=== PATIENT | female | born 2000 | race Caucasian/White ===

== ENCOUNTER 2023-07-06 16:06 | Inpatient (IN) | payer OTHER ==
[~2023-07-06 16:06] MED LIST: Lactated Ringers 1,000 ML IV SCH
[2023-07-06 19:14] LABS: ADD URINE CULTURE? YES (NO); Appearance Clear (Clear); Bacteria Few /HPF (None Seen); Bilirubin Negative (Negative); Blood Moderate (Negative); Epithelial Cells Rare /HPF (None Seen); Glucose, Urine Negative (Negative); Hyaline Casts NONE SEEN /LPF (0-2); Ketones Negative (Negative); Leukocyte Esterase Small (Negative); Nitrite Negative (Negative); Protein,Urine Dip Negative (Negative); RBC 0-2 /HPF (0-5)
[2023-07-06 19:20] LABS: Amphetamine,Urine NEGATIVE (NEGATIVE); Barbiturate,Urine NEGATIVE (NEGATIVE); Benzodiazepine,Urine NEGATIVE (NEGATIVE); Cocaine,Urine NEGATIVE (NEGATIVE); Methadone,Urine NEGATIVE (NEGATIVE); Opiate,Urine NEGATIVE (NEGATIVE); PCP,Urine NEGATIVE (NEGATIVE); THC,Urine NEGATIVE (NEGATIVE)
[2023-07-06] MEDS ORDERED: XYLOCAINE 1% HCL 20 ML MDV IJ PRN (20:09)
[2023-07-06] MEDS ORDERED: Zofran 4 MG/2 ML VIAL IV PRN (20:09)
[2023-07-06] MEDS ORDERED: Ephedrine Sulfate 50 MG/ML IV PRN (20:16)
[2023-07-06 20:51] LABS: Absolute Neutrophil Ct (ANC) 13.83 x10^3/uL (1.4-6.9); BASOPHIL % 0.4 % (0.0-0.4); Basophil (Absolute #) 0.08 x10^3/uL (0-0.4); Eosinophil % 0.1 % (0.00-5.0); Eosinophil (Absolute #) 0.02 x10^3/uL (0-0.5); Hematocrit 32.7 % (35-47); Hemoglobin 10.5 g/dL (12.0-16.0); IMMATURE GRAN % 1.7 % (0.00-0.4); Lymphocyte (Absolute #) 2.92 x10^3/uL (1.0-4.6); Lymphocytes % 16.2 % (24.0-44.0); Mean Cell Volume 80.5 fL (78-100); Mean Corpuscular Hemoglobin 25.9 pg (26-32); Mean Corpuscular Hgb Concent. 32.1 g/dL (32-36); Mean Platelet Volume 11.6 fL (7.5-11.0); Monocyte (Absolute #) 0.84 x10^3/uL (0.0-1.3); Monocytes % 4.7 % (0.0-12.0); Neutrophil % 76.9 % (36.0-66.0); Platelet Count 295 x10^3/uL (150-450); Red Blood Count 4.06 x10^6/uL (4.1-5.4)
[2023-07-06] MEDS ORDERED: FENTANYL 2 MCG-BUPIV 0.125%-NS 250 ML Epidur 250 ML EPIDURAL SCH (21:00)
[2023-07-06] MEDS ORDERED: Lactated Ringers 1,000 ML IV ONE (21:00)
[2023-07-06 22:44] LABS: ABO TYPING A; RH TYPING POSITIVE
[2023-07-06 22:45] LABS: Antibody Screen POSITIVE (NEGATIVE)
[2023-07-07] MEDS ORDERED: PITOCIN 30 UNITS/ LR 500 ML 30 UNITS/500 ML PLAST..BAG IV SCH (06:00)
[2023-07-07] MEDS ORDERED: Ambien 10 MG PO PRN (09:13)
[2023-07-07] MEDS ORDERED: Dulcolax 10 MG SUPP PR PRN (09:13)
[2023-07-07] MEDS ORDERED: Mylicon 80MG PO PRN (09:13)
[2023-07-07] MEDS ORDERED: Anucort-HC SUPPOSITORY PR PRN (09:13)
[2023-07-07] MEDS ORDERED: CORTISONE 1% CREAM TP PRN (09:13)
[2023-07-07] MEDS ORDERED: Restoril 15 MG PO PRN (09:13)
[2023-07-07] MEDS ORDERED: TYLENOL EXTRA STRENGTH 500 MG PO PRN (09:13)
[2023-07-07] MEDS ORDERED: TUCKS TP PRN (09:13)
[2023-07-07] MEDS ORDERED: Dermoplast Spray TP PRN (09:13)
[2023-07-07] MEDS: FERREX 150 PO SCH (12:54)
[2023-07-07] MEDS: Docusate Sodium 100 MG PO SCH ×2 (12:54→21:43)
[2023-07-07] MEDS: MOTRIN 400 MG PO PRN ×2 (14:44→21:42)
[2023-07-07 16:18] VITALS: O2SAT 98
[2023-07-07 19:40] LABS: Appearance Clear (Clear); Bilirubin Negative (Negative); Blood Large (Negative); Glucose, Urine Negative (Negative); Hyaline Casts NONE SEEN /LPF (0-2); Ketones 15 (Negative); Leukocyte Esterase Trace (Negative); Nitrite Negative (Negative); Ph 6.5 (4.6-8.0); Protein,Urine Dip Negative (Negative); Specific Gravity 1.015 (1.005-1.030)
[2023-07-07 19:41] LABS: Bacteria Rare /HPF (None Seen); Epithelial Cells Few /HPF (None Seen)
[2023-07-07 19:42] LABS: ADD URINE CULTURE? NO (NO)
[2023-07-07] MEDS: TYLENOL EXTRA STRENGTH 500 MG PO PRN (19:49)
[2023-07-08] MEDS: TYLENOL EXTRA STRENGTH 500 MG PO PRN ×2 (02:38→16:46)
[2023-07-08] MEDS: MOTRIN 400 MG PO PRN ×3 (04:35→19:14)
[2023-07-08 04:59] LABS: Absolute Neutrophil Ct (ANC) 10.54 x10^3/uL (1.4-6.9); BASOPHIL % 0.3 % (0.0-0.4); Basophil (Absolute #) 0.04 x10^3/uL (0-0.4); Eosinophil % 0.4 % (0.00-5.0); Eosinophil (Absolute #) 0.05 x10^3/uL (0-0.5); Hematocrit 30.8 % (35-47); Hemoglobin 9.8 g/dL (12.0-16.0); IMMATURE GRAN # 0.23 x10^3u/L (0.00-0.03); IMMATURE GRAN % 1.6 % (0.00-0.4); Lymphocyte (Absolute #) 2.42 x10^3/uL (1.0-4.6); Mean Cell Volume 81.5 fL (78-100); Mean Corpuscular Hemoglobin 25.9 pg (26-32); Mean Corpuscular Hgb Concent. 31.8 g/dL (32-36); Mean Platelet Volume 11.9 fL (7.5-11.0); Monocyte (Absolute #) 0.97 x10^3/uL (0.0-1.3); Monocytes % 6.8 % (0.0-12.0); Neutrophil % 73.9 % (36.0-66.0); Platelet Count 245 x10^3/uL (150-450); Red Blood Count 3.78 x10^6/uL (4.1-5.4); Red Cell Distribution Width 13.2 % (11.5-14.0); White Blood Count 14.3 x10^3/uL (4.0-10.5)
[2023-07-08] MEDS: FERREX 150 PO SCH (09:50)
[2023-07-08] MEDS: Docusate Sodium 100 MG PO SCH ×2 (09:50→21:51)
--- NOTE | 2023-07-09 08:52 | PCM.DS ---
Discharge Summary Date of Admission: 07/06/23 20:00 Admitting Physician: ARLINE PRESSLEY Consults: Consults on Case 07/06/23 17:05 OB Social Determinants of Health Referal ONCE 07/06/23 21:00 Notify Anesthesia Provider PRN 07/07/23 09:14 Notify Physician ROUTINE 07/07/23 16:00 Navigation ONCE Primary Care Provider: ARLINE PRESSLEY Allergies Allergies amoxicillin Allergy (Severe, Verified 07/06/23 17:05) Hospital Summary - Hospital Course Hospital Course: patient arrived in spontaneous labor at 37+weeks and delivered via uncomplicated . mild lochia, pain well controlled with motrin - Vitals & Intake/Output Vital Signs: Vital Signs Temperature 96.7 F 07/09/23 02:00 Pulse Rate 73 07/09/23 02:00 Respiratory Rate 15 07/09/23 02:00 Blood Pressure 113/69 07/09/23 02:00 O2 Sat by Pulse Oximetry 98 07/09/23 02:00 Intake & Output: Intake & Output 07/06/23 07/07/23 07/08/23 07/09/23 11:59 11:59 11:59 11:59 Intake Total 9150 2225 1100 Output Total 700 Balance 8450 2225 1100 Weight 64.864 kg - Lab Result Diagrams: 07/08/23 04:50 Micro Results-Entire Visit: Microbiology 07/07/23 17:00 Urine Culture - Final Catherized NO GROWTH 07/06/23 17:00 Urine Culture - Final Clean Catch Midstream NO GROWTH Discharge Exam General Appearance: no apparent distress Neurologic Exam: alert, oriented x 3 Respiratory Exam: normal breath sounds, lungs clear, No respiratory distress Cardiovascular Exam: regular rate/rhythm, normal heart sounds Gastrointestinal/Abdomen Exam: soft, No tenderness, No mass Extremity Exam: normal inspection, normal range of motion Skin Exam: normal color, warm, dry Final Diagnosis/Problem List - Final Discharge Diagnosis/Problem (1) Vaginal delivery Current Visit: Yes Status: Acute Code(s): O80 - ENCOUNTER FOR FULL-TERM UNCOMPLICATED DELIVERY (2) First degree perineal laceration Current Visit: Yes Status: Acute Code(s): O70.0 - FIRST DEGREE PERINEAL LACERATION DURING DELIVERY - Discharge Disposition: Home, Self-Care Condition: Stable Prescriptions: Continue Vit No.179/Iron/Folic [ Tablet] See Rx Instructions .ROUTE .COMPLEX Ferrous Sulfate 1 tab PO DAILY Albuterol Sulfate [Albuterol Sulfate Hfa] 2 puffs PO Q4-6HPRN PRN PRN Reason: Shortness Of Breath Follow up with: ARLINE PRESSLEY MD [Primary Care Provider] -
[2023-07-09] MEDS: FERREX 150 PO SCH (09:42)
[2023-07-09] MEDS: Docusate Sodium 100 MG PO SCH (09:42)
[2023-07-09] MEDS: MOTRIN 400 MG PO PRN (09:42)
[2023-07-09 10:15] VITALS: BP 126/69; PULSE 101; RESP 16; TEMP 97.8
== END 2023-07-09 11:20 | disposition home or self-care (01) | DRG 807 ==
LOC: OB 16:06 → OBSVTOIN 20:00 → MED SURG 07-08 08:59
PROVIDERS: ADMIT Family Medicine; ATTEND Family Medicine
PROC: 10E0XZZ Delivery of Products of Conception, External Approach (ICD-10-PCS; principal; 2023-07-07)
PROC: 0HQ9XZZ Repair Perineum Skin, External Approach (ICD-10-PCS; 2023-07-07)
DX: O70.0 First degree perineal laceration during delivery (principal); Z37.0 Single live birth; Z3A.37 37 weeks gestation of pregnancy; Z20.828 Contact with and (suspected) exposure to other viral communicable diseases
CPT/HCPCS: 36415; 80307; 81001; 81003; 85025; 86850; 86870; 86900; 86901; 87086; G0378; G0379; J2590; A9270-GY

== ENCOUNTER 2023-11-15 20:24 | Emergency (ER) | payer OTHER ==
--- NOTE | 2023-11-15 20:35 | ERPHSYRPT ---
- History of Present Illness Time Seen by Provider: 11/15/23 20:35 Source: patient Exam Limitations: no limitations Physician History: This is a right-handed 23-year-old white female patient Dr. Pressley who was washing dishes prior to arrival to the emergency department when a glass broke and cut the lateral aspect of her right fifth digit. Patient tetanus status is unknown and she is refusing tetanus injection Timing/Duration: today Quality: burning, painful Severity: mild Location: feet (Right hand fifth digit) Possible Causes: no cause identified Associated Symptoms: denies symptoms Allergies/Adverse Reactions: amoxicillin Allergy (Severe, Verified 11/15/23 20:42) Home Medications: Albuterol Sulfate [Albuterol Sulfate Hfa] 2 puffs PO Q4-6HPRN PRN 07/06/23 [History] Dextroamphetamine/Amphetamine [Adderall 15 mg Tablet] 15 mg PO DAILY 11/15/23 [History] Travel Risk - International Travel Have you traveled outside of the country in past 3 weeks: No - Coronavirus Screening Are you exhibiting any of the following symptoms?: No Close contact with a COVID-19 positive Pt in past 14-21 Days: No - Vaccine Status Have you recieved a Covid-19 vaccination: No - Review of Systems Constitutional: No Symptoms Eyes: No Symptoms Ears, Nose, & Throat: No Symptoms Respiratory: No Symptoms Cardiac: No Symptoms Abdominal/Gastrointestinal: No Symptoms Genitourinary Symptoms: No Symptoms Musculoskeletal: No Symptoms Skin: Other Neurological: No Symptoms Psychological: No Symptoms Endocrine: No Symptoms Hematologic/Lymphatic: No Symptoms - Past Medical History Pertinent Past Medical History: No Neurological History: No Pertinent History ENT History: No Pertinent History Cardiac History: No Pertinent History Respiratory History: Asthma Endocrine Medical History: No Pertinent History Musculoskeletal History: Other GI Medical History: No Pertinent History, Diverticulosis Psycho-Social History: No Pertinent History Female Reproductive Disorders: No Pertinent History Other Medical History: Scoliosis - Past Surgical History Past Surgical History: Yes (Wrist surgery) Neuro Surgical History: No Pertinent History Cardiac: No Pertinent History Respiratory: Chest Surgery Gastrointestinal: No Pertinent History Genitourinary: No Pertinent History Musculoskeletal: Other Female Surgical History: No Pertinent History - Social History Smoking Status: Never smoker Exposure to second hand smoke: No Drug Use: none - Nursing Vital Signs Nursing Vital Signs: Initial Vital Signs Temperature 98.4 F 01/01/24 20:33 Pulse Rate 80 11/15/23 20:33 Respiratory Rate 16 11/15/23 20:33 Blood Pressure 129/73 11/15/23 20:33 O2 Sat by Pulse Oximetry 98 11/15/23 20:33 Pain Scale Pain Intensity 1 - Physical Exam General Appearance: no apparent distress, alert, anxiety, thin Eye Exam: PERRL/EOMI Ears, Nose, Throat Exam: normal ENT inspection, moist mucous membranes Neck Exam: normal inspection, non-tender, supple, full range of motion Respiratory Exam: airway intact, No chest tenderness, No respiratory distress Pelvic Exam: not done Rectal Exam: not done Back Exam: normal inspection, normal range of motion, No CVA tenderness, No vertebral tenderness Extremity Exam: normal inspection, normal range of motion, pelvis stable, lacerations (Approximately half centimeter by half centimeter by half centimeter flap lateral aspect right fifth digit), other (Neurovascularly intact tendons intact) Neurologic Exam: alert, oriented x 3, cooperative, beer coil cleaner II-XII nml as tested, normal mood/affect, nml cerebellar function, nml station & gait, sensation nml Skin Exam: normal color, warm, laceration (Half centimeter by half centimeter by half centimeter rectangular flap laceration lateral aspect right fifth digit. No foreign body. No active bleeding.) Lymphatic Exam: No adenopathy SpO2 Interpretation: normal O2 Delivery: Room Air Procedures - Laceration/Wound Repair Right Lateral Finger Time of Procedure: 20:55 Wound Location: Right, hand (Fifth digit lateral aspect) Wound Length (cm): 0.5 (0.5 cm x 0.5 cm x 0.5 cm skin flap) Wound's Depth, Shape: superficial, flap Wound Explored: clean (Wound explored to the base is clean. There is no foreign body noted) Irrigated: Yes Hibiclens Prep: Yes Wound Repaired With: Steri-strips, Dermabond (Benzoin applied) - Course Nursing assessment & vital signs reviewed: Yes - Progress Progress: improved Progress Note: 11/15/23 21:06 This patient's medical issue is 1 of low complexity. Level complex in the workup performed is based on review of the patient's past medical history, review the patient's medication list, review the patient's drug allergy list, history of present illness and physical findings on examination. This patient's workup does not include radiographic or laboratory studies. Counseled pt/family regarding: diagnosis, need for follow-up Medical Desision Making - Independent Historian Additional History obtained from: Spouse - Diagnostic Testing Diagnostic test were ordered, analyzed, and reviewed by me: No - Risk of complications Minimal Risk: Minimal risk of morbidity - Departure Departure Disposition: Home Clinical Impression: Laceration of finger Condition: Stable Critical Care Time: No Referrals: ARLINE PRESSLEY MD [Primary Care Provider] - Follow up/PCP as directed Additional Instructions: Keep pressure dressing in place for 24 hours. After 24 hours, remove the pressure dressing and leave the Steri-Strips in place. After 24 hours have passed, may wash the site with soap and water. Blot dry or use department of mathematics chair to dry the site. Leave the Steri-Strips in place till they fall off on their own. Trim the Steri-Strips as they curl up. Use Tylenol and ibuprofen for pain control
[2023-11-15 20:42] VITALS: RESP 16; TEMP 98.4
[2023-11-15 21:21] VITALS: BP 122/76; PULSE 75; O2SAT 99
== END 2023-11-15 21:19 | disposition home or self-care (01) ==
LOC: ED 20:24
DX: S61.216A Laceration without foreign body of right little finger without damage to nail, initial encounter (principal); W25.XXXA Contact with sharp glass, initial encounter; Y93.G1 Activity, food preparation and clean up; Z79.899 Other long term (current) drug therapy; Z28.310 Unvaccinated for COVID-19
CPT/HCPCS: 12001; 99281

== ENCOUNTER 2024-09-09 15:20 | Observation (INO) | payer OTHER ==
[2024-09-09] MEDS ORDERED: Lactated Ringers 1,000 ML IV ONE (16:53)
[2024-09-09] MEDS ORDERED: STADOL 2 MG IV PRN (16:53)
[2024-09-09] MEDS ORDERED: Ephedrine Sulfate 50 MG/ML IV PRN (16:53)
[2024-09-09] MEDS ORDERED: Nubain 10 MG/ML IV PRN (16:53)
[2024-09-09] MEDS ORDERED: TYLENOL EXTRA STRENGTH 500 MG PO PRN (16:53)
[2024-09-09] MEDS ORDERED: Zofran 4 MG/2 ML VIAL IV PRN (16:53)
[2024-09-09] MEDS ORDERED: XYLOCAINE 1% HCL 20 ML MDV IJ PRN (16:53)
[2024-09-09] MEDS ORDERED: PITOCIN 30 UNITS/ LR 500 ML 30 UNITS/500 ML PLAST..BAG IV SCH (17:00)
[2024-09-09] MEDS ORDERED: FENTANYL 2 MCG-BUPIV 0.125%-NS 250 ML Epidur 250 ML EPIDURAL SCH (17:00)
[2024-09-09 17:21] LABS: Absolute Neutrophil Ct (ANC) 8.23 x10^3/uL (1.56-6.13); BASOPHIL % 0.7 % (0.1-1.2); Basophil (Absolute #) 0.07 x10^3/uL (0.01-0.08); Eosinophil % 0.6 % (0.7-5.8); Eosinophil (Absolute #) 0.06 x10^3/uL (0.04-0.36); Hematocrit 31.1 % (34.1-44.9); Hemoglobin 9.9 g/dL (11.2-15.7); IMMATURE GRAN # 0.23 x10^3u/L (0.001-0.031); IMMATURE GRAN % 2.2 % (0.001-0.429); Lymphocyte (Absolute #) 1.44 x10^3/uL (1.18-3.74); Lymphocytes % 13.6 % (19.3-51.7); Mean Cell Volume 75.5 fL (79.4-94.8); Mean Corpuscular Hgb Concent. 31.8 g/dL (32.2-35.5); Mean Platelet Volume 11.6 fL (9.4-12.3); Monocyte (Absolute #) 0.58 x10^3/uL (0.24-0.86); Monocytes % 5.5 % (4.7-12.5); Neutrophil % 77.4 % (34.0-71.1); Platelet Count 287 x10^3/uL (182-369); Red Blood Count 4.12 x10^6/uL (3.93-5.22); White Blood Count 10.6 x10^3/uL (3.98-10.04)
[2024-09-09 17:40] LABS: Amphetamine,Urine NEGATIVE (NEGATIVE); Barbiturate,Urine NEGATIVE (NEGATIVE); Benzodiazepine,Urine NEGATIVE (NEGATIVE); Cocaine,Urine NEGATIVE (NEGATIVE); Methadone,Urine NEGATIVE (NEGATIVE); Opiate,Urine NEGATIVE (NEGATIVE); PCP,Urine NEGATIVE (NEGATIVE); THC,Urine NEGATIVE (NEGATIVE)
[2024-09-09 18:16] LABS: ABO TYPING A; Antibody Screen NEGATIVE (NEGATIVE); RH TYPING POSITIVE
[2024-09-09] MEDS: Lactated Ringers 1,000 ML IV SCH (21:21)
[2024-09-09 23:08] VITALS: RESP 16
[2024-09-10 06:28] VITALS: O2SAT 99
[2024-09-10 08:19] VITALS: BP 119/72; PULSE 68; TEMP 97.8
--- NOTE | 2024-09-10 10:01 | PCM.SSS ---
History of Present Illness - Chief Complaint Chief Complaint: IUP History of Present Illness: is a 24 year old female at 37 wks arrived with contractions, she initially had some cervical change but contractions spaced out and she has made no change, very irregular contractions. - Review of Systems Constitutional: No Fever, No Chills Respiratory: No Cough, No Short Of Breath Cardiac: No Chest Pain, No Edema, No Syncope Skin: No Rash All Other Systems: Reviewed and Negative Medications & Allergies Home Medications: Home Medication List Albuterol Sulfate [Albuterol Sulfate Hfa] 2 puffs PO Q4-6HPRN PRN 07/06/23 [History Confirmed 09/09/24] Dextroamphetamine/Amphetamine [Adderall 15 mg Tablet] 15 mg PO DAILY 11/15/23 [History Confirmed 09/09/24] Allergies/Adverse Reactions: Allergies Allergy/AdvReac Type Severity Reaction Status Date / Time amoxicillin Allergy Severe Verified 11/15/23 20:42 - Past Medical History Past Medical History: No Neurological History: Migraines ENT History: No Pertinent History Cardiac History: No Pertinent History Respiratory History: Asthma Endocrine Medical History: No Pertinent History Musculoskelatal History: Fractures GI Medical History: No Pertinent History, Diverticulosis Pyscho-Social History: No Pertinent History Reproductive Disorders: No Pertinent History Comment: FX LEFT WRIST AT AGE [age] YEARS OLD - HAD ORIF BUT PINS HAVE BEEN REMOVED. ADHD - Female History Expected Date of Delivery: 09/30/24 - Past Surgical History Past Surgical History: Yes (Wrist surgery) Neuro Surgical History: No Pertinent History Cardiac History: No Pertinent History Respiratory Surgery: Chest Surgery GI Surgical History: No Pertinent History Genitourinary Surgical Hx: No Pertinent History Musculskeletal Surgical Hx: Other Female Surgical History: No Pertinent History Other Surgical History: back of head- cat scratch fever - Social History Smoking Status: Never smoker Exposure to second hand smoke: No Alcohol: None Drug Use: none - Social Determinants of Health Will the patient participate in the screening: Yes Do you worry about a steady place to live?: Yes Do you have any problems with any of the following?: No known problems In the past 12 months,have you had to go without utilities?: No Have you or anyone in your house had to go without enough: No Transportation Issues: No Has anyone in your support network made you feel unsafe?: No Does the patient want assistance with any of the above?: No - Physical Exam Vital Signs: Vital Signs - 24 hr Temp Pulse Resp BP BP Pulse Ox 09/10/24 09:00 16 09/10/24 08:19 97.8 F 68 16 119/72 09/10/24 08:16 97.8 F 68 16 119/72 09/10/24 06:00 97.7 F 83 16 118/73 99 09/10/24 05:44 97.1 F 83 16 122/59 98 09/10/24 01:00 97.8 F 80 16 121/69 09/10/24 00:34 97.8 F 80 16 121/69 09/10/24 00:00 97.8 F 80 16 09/09/24 23:41 72 16 108/66 09/09/24 23:34 72 16 108/66 09/09/24 23:00 98.0 F 71 16 100 09/09/24 22:05 98.0 F 71 16 126/79 100 09/09/24 21:20 97.8 F 79 18 09/09/24 21:01 97.8 F 79 18 125/74 09/09/24 20:28 97.8 F 80 18 131/72 09/09/24 20:00 97.8 F 18 120/66 09/09/24 19:24 97.8 F 18 120/66 09/09/24 19:00 70 18 120/66 09/09/24 18:30 70 18 120/74 120/66 09/09/24 17:30 71 16 120/74 09/09/24 16:16 77 16 127/79 09/09/24 16:15 77 16 127/79 General Appearance: no apparent distress, alert Respiratory Exam: normal breath sounds, lungs clear, No respiratory distress Gastrointestinal/Abdomen Exam: soft Pelvic Exam: other (SVE 3cm/50%/-2) Results - Labs Lab/Micro Results: Lab Results-Last 24 Hours 09/09/24 09/09/24 09/09/24 Range/Units 17:16 17:16 17:19 WBC 10.6 H (3.98-10.04) x10^3/uL RBC 4.12 (3.93-5.22) x10^6/uL Hgb 9.9 L (11.2-15.7) g/dL Hct 31.1 L (34.1-44.9) % MCV 75.5 L (79.4-94.8) fL MCH 24.0 L (25.6-32.2) pg MCHC 31.8 L (32.2-35.5) g/dL RDW 13.0 (11.7-14.4) % Plt Count 287 (182-369) x10^3/uL MPV 11.6 (9.4-12.3) fL Gran % 77.4 H (34.0-71.1) % Immature Gran % (Auto) 2.2 H (0.001-0.429) % Nucleat RBC Rel Count 0.0 (0.00-0.2) % Eos # (Auto) 0.06 (0.04-0.36) x10^3/uL Immature Gran # (Auto) 0.23 H (0.001-0.031) x10^3u/L Absolute Lymphs (auto) 1.44 (1.18-3.74) x10^3/uL Absolute Monos (auto) 0.58 (0.24-0.86) x10^3/uL Absolute Nucleated RBC 0.00 (0.00-0.012) x10^3u/L Lymphocytes % 13.6 L (19.3-51.7) % Monocytes % 5.5 (4.7-12.5) % Eosinophils % 0.6 L (0.7-5.8) % Basophils % 0.7 (0.1-1.2) % Absolute Granulocytes 8.23 H (1.56-6.13) x10^3/uL Basophils # 0.07 (0.01-0.08) x10^3/uL Urine Opiates Level NEGATIVE (NEGATIVE) Ur Methadone NEGATIVE (NEGATIVE) Urine Barbiturates NEGATIVE (NEGATIVE) Ur Phencyclidine (PCP) NEGATIVE (NEGATIVE) Urine Amphetamine NEGATIVE (NEGATIVE) U Benzodiazepine Level NEGATIVE (NEGATIVE) Urine Cocaine NEGATIVE (NEGATIVE) Urine Marijuana (THC) NEGATIVE (NEGATIVE) ABO Group A Rh Factor POSITIVE Antibody Screen NEGATIVE (NEGATIVE) Assessment/Plan (1) Term Current Visit: Yes Status: Acute Code(s): Z34.90 - ENCNTR FOR SUPRVSN OF NORMAL , UNSP, UNSP TRIMESTER (2) Irregular contractions Current Visit: Yes Status: Acute Assessment & Plan: reviewed reasons to return and signs/symptoms of labor. all questions answered and patient understands when to come back and not able to intervene due to gestational age at this time. Code(s): O47.9 - FALSE LABOR, UNSPECIFIED Hospital Summary - Vitals & Intake/Output Vital Signs: Vital Signs Temperature 97.8 F 09/10/24 08:19 Pulse Rate 68 09/10/24 08:19 Respiratory Rate 16 09/10/24 09:00 Blood Pressure 119/72 09/10/24 08:19 O2 Sat by Pulse Oximetry 99 09/10/24 06:00 Intake & Output: Intake & Output 09/07/24 09/08/24 09/09/24 09/10/24 11:59 11:59 11:59 11:59 Intake Total 600 Balance 600 Weight 64.41 kg - Lab Result Diagrams: 09/09/24 17:16 Lab Results-Last 24 Hrs: Lab Results-Last 24 Hours 09/09/24 09/09/24 09/09/24 Range/Units 17:16 17:16 17:19 WBC 10.6 H (3.98-10.04) x10^3/uL RBC 4.12 (3.93-5.22) x10^6/uL Hgb 9.9 L (11.2-15.7) g/dL Hct 31.1 L (34.1-44.9) % MCV 75.5 L (79.4-94.8) fL MCH 24.0 L (25.6-32.2) pg MCHC 31.8 L (32.2-35.5) g/dL RDW 13.0 (11.7-14.4) % Plt Count 287 (182-369) x10^3/uL MPV 11.6 (9.4-12.3) fL Gran % 77.4 H (34.0-71.1) % Immature Gran % (Auto) 2.2 H (0.001-0.429) % Nucleat RBC Rel Count 0.0 (0.00-0.2) % Eos # (Auto) 0.06 (0.04-0.36) x10^3/uL Immature Gran # (Auto) 0.23 H (0.001-0.031) x10^3u/L Absolute Lymphs (auto) 1.44 (1.18-3.74) x10^3/uL Absolute Monos (auto) 0.58 (0.24-0.86) x10^3/uL Absolute Nucleated RBC 0.00 (0.00-0.012) x10^3u/L Lymphocytes % 13.6 L (19.3-51.7) % Monocytes % 5.5 (4.7-12.5) % Eosinophils % 0.6 L (0.7-5.8) % Basophils % 0.7 (0.1-1.2) % Absolute Granulocytes 8.23 H (1.56-6.13) x10^3/uL Basophils # 0.07 (0.01-0.08) x10^3/uL Urine Opiates Level NEGATIVE (NEGATIVE) Ur Methadone NEGATIVE (NEGATIVE) Urine Barbiturates NEGATIVE (NEGATIVE) Ur Phencyclidine (PCP) NEGATIVE (NEGATIVE) Urine Amphetamine NEGATIVE (NEGATIVE) U Benzodiazepine Level NEGATIVE (NEGATIVE) Urine Cocaine NEGATIVE (NEGATIVE) Urine Marijuana (THC) NEGATIVE (NEGATIVE) ABO Group A Rh Factor POSITIVE Antibody Screen NEGATIVE (NEGATIVE) - Discharge Disposition: Home, Self-Care Condition: Stable Prescriptions: No Action Albuterol Sulfate [Albuterol Sulfate Hfa] 2 puffs PO Q4-6HPRN PRN PRN Reason: Shortness Of Breath Dextroamphetamine/Amphetamine [Adderall 15 mg Tablet] 15 mg PO DAILY Additional Instructions: Keep upcoming appointment scheduled with Dr. Pressley Follow up with: ARLINE PRESSLEY MD [Primary Care Provider] - Forms: OB Outpatient Discharge Inst.
[2024-09-12 07:24] LABS: RPR Non Reactive (Non Reactive)
== END 2024-09-10 10:45 | disposition home or self-care (01) ==
LOC: OB 15:20 → OBSVTOIN 18:00 → INTOOBSV 18:00 → OB 18:00
PROVIDERS: ADMIT Family Medicine; ATTEND Family Medicine
DX: Z34.83 Encounter for supervision of other normal pregnancy, third trimester (principal); Z3A.37 37 weeks gestation of pregnancy; Z59.811 Housing instability, housed, with risk of homelessness
CPT/HCPCS: 36415; 80307; 85025; 86592; 86850; 86900; 86901; G0378; G0379

== ENCOUNTER 2024-09-17 22:25 | Inpatient (IN) | payer OTHER ==
[2024-09-17 23:12] LABS: AMNISURE TEST RESULTS POSITIVE (NEGATIVE)
[2024-09-17 23:19] LABS: Amphetamine,Urine NEGATIVE (NEGATIVE); Barbiturate,Urine NEGATIVE (NEGATIVE); Benzodiazepine,Urine NEGATIVE (NEGATIVE); Cocaine,Urine NEGATIVE (NEGATIVE); Methadone,Urine NEGATIVE (NEGATIVE); Opiate,Urine NEGATIVE (NEGATIVE); PCP,Urine NEGATIVE (NEGATIVE); THC,Urine NEGATIVE (NEGATIVE)
[2024-09-17] MEDS ORDERED: XYLOCAINE 1% HCL 20 ML MDV IJ PRN (23:41)
[2024-09-17] MEDS ORDERED: Zofran 4 MG/2 ML VIAL IV PRN (23:41)
[2024-09-17 23:48] LABS: Appearance Clear (Clear); Bacteria None Seen /HPF (None Seen); Bilirubin Negative (Negative); Blood Small (Negative); Epithelial Cells None Seen /HPF (None Seen); Glucose, Urine 100 mg/dL (Negative); Hyaline Casts NONE SEEN /LPF (0-2); Ketones Negative (Negative); Leukocyte Esterase Negative (Negative); Nitrite Negative (Negative); Ph 5.5 (4.6-8.0); Protein,Urine Dip Negative (Negative); Urobilinogen 0.2 mg/dL (0.2)
[2024-09-18] MEDS: Lactated Ringers 1,000 ML IV SCH (00:05)
[2024-09-18 00:22] LABS: Absolute Neutrophil Ct (ANC) 9.14 x10^3/uL (1.56-6.13); BASOPHIL % 0.3 % (0.1-1.2); Basophil (Absolute #) 0.04 x10^3/uL (0.01-0.08); Eosinophil % 0.5 % (0.7-5.8); Eosinophil (Absolute #) 0.06 x10^3/uL (0.04-0.36); Hematocrit 31.5 % (34.1-44.9); Hemoglobin 10.1 g/dL (11.2-15.7); IMMATURE GRAN # 0.14 x10^3u/L (0.001-0.031); IMMATURE GRAN % 1.2 % (0.001-0.429); Lymphocyte (Absolute #) 2.01 x10^3/uL (1.18-3.74); Lymphocytes % 16.7 % (19.3-51.7); Mean Cell Volume 73.8 fL (79.4-94.8); Mean Corpuscular Hemoglobin 23.7 pg (25.6-32.2); Mean Corpuscular Hgb Concent. 32.1 g/dL (32.2-35.5); Mean Platelet Volume 11.6 fL (9.4-12.3); Monocyte (Absolute #) 0.62 x10^3/uL (0.24-0.86); Monocytes % 5.2 % (4.7-12.5); Neutrophil % 76.1 % (34.0-71.1); Platelet Count 297 x10^3/uL (182-369); Red Blood Count 4.27 x10^6/uL (3.93-5.22); Red Cell Distribution Width 13.6 % (11.7-14.4)
[2024-09-18] MEDS: PITOCIN 30 UNITS/ LR 500 ML 30 UNITS/500 ML PLAST..BAG IV SCH ×2 (01:59→19:41)
[2024-09-18 03:05] LABS: ABO TYPING A
[2024-09-18 03:06] LABS: Antibody Screen NEGATIVE (NEGATIVE); RH TYPING POSITIVE
[2024-09-18] MEDS: STADOL 2 MG IV PRN (04:50)
[2024-09-18] MEDS ORDERED: Ephedrine Sulfate 50 MG/ML IV PRN (05:04)
[2024-09-18] MEDS: Lactated Ringers 1,000 ML IV ONE (05:14)
[2024-09-18] MEDS ORDERED: FENTANYL 2 MCG-BUPIV 0.125%-NS 250 ML Epidur 250 ML EPIDURAL SCH (05:15)
[2024-09-18] MEDS ORDERED: Dermoplast Spray TP PRN (06:20)
[2024-09-18] MEDS ORDERED: Dulcolax 10 MG SUPP PR PRN (06:20)
[2024-09-18] MEDS ORDERED: LANSINOH 40 GM TOP PRN (06:20)
[2024-09-18] MEDS: MOTRIN 400 MG PO PRN (09:28)
[2024-09-18] MEDS: Docusate Sodium 100 MG PO SCH (09:28)
[2024-09-18] MEDS: FERREX 150 PO SCH (09:36)
[2024-09-18] MEDS: TYLENOL EXTRA STRENGTH 500 MG PO PRN (11:53)
[2024-09-19 05:32] LABS: Absolute Neutrophil Ct (ANC) 7.61 x10^3/uL (1.56-6.13); BASOPHIL % 0.7 % (0.1-1.2); Basophil (Absolute #) 0.08 x10^3/uL (0.01-0.08); Eosinophil % 1.2 % (0.7-5.8); Eosinophil (Absolute #) 0.13 x10^3/uL (0.04-0.36); Hematocrit 25.6 % (34.1-44.9); Hemoglobin 7.9 g/dL (11.2-15.7); IMMATURE GRAN # 0.19 x10^3u/L (0.001-0.031); IMMATURE GRAN % 1.7 % (0.001-0.429); Lymphocyte (Absolute #) 2.36 x10^3/uL (1.18-3.74); Lymphocytes % 21.4 % (19.3-51.7); Mean Corpuscular Hemoglobin 23.4 pg (25.6-32.2); Mean Corpuscular Hgb Concent. 30.9 g/dL (32.2-35.5); Mean Platelet Volume 12.4 fL (9.4-12.3); Monocyte (Absolute #) 0.68 x10^3/uL (0.24-0.86); Monocytes % 6.2 % (4.7-12.5); Neutrophil % 68.8 % (34.0-71.1); Platelet Count 225 x10^3/uL (182-369); Red Blood Count 3.37 x10^6/uL (3.93-5.22); Red Cell Distribution Width 13.9 % (11.7-14.4); White Blood Count 11.1 x10^3/uL (3.98-10.04)
[2024-09-19 08:32] LABS: RPR Non Reactive (Non Reactive)
[2024-09-20 03:34] VITALS: PULSE 84
[2024-09-20 08:59] VITALS: BP 120/70; RESP 16; TEMP 98; O2SAT 98
--- NOTE | 2024-09-20 08:59 | PCM.DS ---
Discharge Summary Date of Admission: 09/17/24 22:25 Admitting Physician: ARLINE PRESSLEY Consults: Consults on Case 09/18/24 05:04 Notify Anesthesia Provider PRN 09/18/24 08:06 Navigation ONCE Primary Care Provider: ARLINE PRESSLEY Allergies Allergies amoxicillin Allergy (Severe, Verified 11/15/23 20:42) Hospital Summary - Hospital Course Hospital Course: patient arrived ins spont labor at term 38+ wks, uncomplicated vaginal delivery. anemia noted, no symptoms. mild lochia, pain controlled with tylenol/ibuprofen. - Vitals & Intake/Output Vital Signs: Vital Signs Temperature 98.1 F 09/20/24 02:00 Pulse Rate 84 09/20/24 02:00 Respiratory Rate 18 09/20/24 02:00 Blood Pressure 110/68 09/20/24 02:00 O2 Sat by Pulse Oximetry 97 09/20/24 02:00 Intake & Output: Intake & Output 09/17/24 09/18/24 09/19/24 09/20/24 11:59 11:59 11:59 11:59 Intake Total 1400 1500 Balance 1400 1500 Weight 67.631 kg - Lab Result Diagrams: 09/19/24 04:40 Discharge Exam General Appearance: no apparent distress Neurologic Exam: alert, oriented x 3 Respiratory Exam: normal breath sounds, lungs clear, No respiratory distress Cardiovascular Exam: regular rate/rhythm, normal heart sounds Gastrointestinal/Abdomen Exam: soft, other (fundus firm) Extremity Exam: normal inspection, normal range of motion Skin Exam: normal color, warm, dry Final Diagnosis/Problem List - Final Discharge Diagnosis/Problem (1) Vaginal delivery Current Visit: No Status: Acute Code(s): O80 - ENCOUNTER FOR FULL-TERM UNCOMPLICATED DELIVERY - Discharge Disposition: Home, Self-Care Condition: Stable Prescriptions: Continue Albuterol Sulfate [Albuterol Sulfate Hfa] 2 puffs PO Q4-6HPRN PRN PRN Reason: Shortness Of Breath No122/Iron/Folic Acid [ Multi Tablet] 1 each PO Ferrous Sulfate 325 mg [Feosol 325 mg] Follow up with: ARLINE PRESSLEY MD [Primary Care Provider] - 6 weeks
== END 2024-09-20 12:55 | disposition home or self-care (01) | DRG 807 ==
LOC: OB 22:25 → OBSVTOIN 22:25
PROVIDERS: ADMIT Family Medicine; ATTEND Family Medicine
PROC: 10E0XZZ Delivery of Products of Conception, External Approach (ICD-10-PCS; principal; 2024-09-18)
DX: O99.02 Anemia complicating childbirth (principal); Z37.0 Single live birth; Z3A.38 38 weeks gestation of pregnancy
CPT/HCPCS: 36415; 76816; 80307; 81001; 84112; 85025; 86592; 86850; 86900; 86901; J0595; J2590; A9270-GY

== ENCOUNTER 2024-10-31 17:31 | Emergency (ER) | payer OTHER ==
[2024-10-31 18:30] VITALS: TEMP 98.1
--- NOTE | 2024-10-31 19:14 | ERPHSYRPT ---
- History of Present Illness Time Seen by Provider: 10/31/24 18:40 Source: patient Exam Limitations: no limitations Patient Subjective Stated Complaint: vomiting from 1999 to 020 this morning, 1 episode of diarrhea last night. Triage Nursing Assessment: Pt arrives to ED via POV. Ambulates to bed 9, changed into gown and placed on monitor. Pt c/o vomiting multiple times between 1999- 199 last night. No nausea or vomiting today. One episode of diarrhea last night, no diarrhea today. At this time, c/o body aches, headaches, joint pain. Denies cough or fever. Skin PWD. VSS on RA. Abdomen soft. Pt states has only had a couple small sips of water today, no food. Only urinated once today around noon. Denies hematuria or flank pain. Given blanket and call light. Physician History: 24-year-old female presents to our ED for evaluation of viral-like syndrome. Patient states she had [place] yesterday evening. Patient later began to experience nausea vomiting diarrhea. Patient states she vomited continuously from 8 PM to 2 AM. Patient now complains of generalized bodyaches. Generalized weakness. No abdominal pain no chest pain. Patient believes she may have had a fever yesterday of 100.3. However patient currently afebrile and has not taken antipyretics. Patient states she is otherwise healthy. No significant past medical history patient's aunt is at the bedside. They voiced no other complaints or concerns at this time. Portions of this note were created with voice recognition technology. There may be grammatical, spelling, punctuation or sound alike errors Timing/Duration: today Severity: moderate Modifying Factors: Improves With: nothing Associated Symptoms: denies symptoms Allergies/Adverse Reactions: amoxicillin Allergy (Severe, Verified 11/15/23 20:42) Home Medications: Albuterol Sulfate [Albuterol Sulfate Hfa] 2 puffs PO Q4-6HPRN PRN 07/06/23 [History] Hx Tetanus, Diphtheria Vaccination/Date Given: No Hx Influenza Vaccination/Date Given: No Hx Pneumococcal Vaccination/Date Given: No Travel Risk - International Travel Have you traveled outside of the country in past 3 weeks: No - Emerging Infectious Disease Are you exhibiting symptoms associated with any current EIDs: No Symptoms: Headaches/Body Aches/ - Review of Systems Constitutional: No Symptoms, No Fever, No Chills Eyes: No Symptoms Ears, Nose, & Throat: No Symptoms Respiratory: No Symptoms, No Cough, No Dyspnea Cardiac: No Symptoms, No Chest Pain, No Edema, No Syncope Abdominal/Gastrointestinal: No Symptoms, No Abdominal Pain, No Nausea, No Vomiting, No Diarrhea Genitourinary Symptoms: No Symptoms, No Dysuria Musculoskeletal: No Symptoms, No Back Pain, No Neck Pain Skin: No Symptoms, No Rash Neurological: No Symptoms, No Dizziness, No Focal Weakness, No Sensory Changes Psychological: No Symptoms Endocrine: No Symptoms Hematologic/Lymphatic: No Symptoms Immunological/Allergic: No Symptoms All Other Systems: Reviewed and Negative - Past Medical History Pertinent Past Medical History: No Neurological History: Migraines ENT History: No Pertinent History Cardiac History: No Pertinent History Respiratory History: Asthma Endocrine Medical History: No Pertinent History Musculoskeletal History: Fractures GI Medical History: No Pertinent History, Diverticulosis Psycho-Social History: No Pertinent History Female Reproductive Disorders: No Pertinent History Other Medical History: FX LEFT WRIST AT AGE [age] YEARS OLD - HAD ORIF BUT PINS HAVE BEEN REMOVED. ADHD - Past Surgical History Past Surgical History: Yes (Wrist surgery) Neuro Surgical History: No Pertinent History Cardiac: No Pertinent History Respiratory: Chest Surgery Gastrointestinal: No Pertinent History Genitourinary: No Pertinent History Musculoskeletal: Other Female Surgical History: No Pertinent History Other Surgical History: back of head- cat scratch fever - Female History Hx Last Menstrual Period: 10/23/2024 Hx Now: No - Social History Smoking Status: Never smoker Exposure to second hand smoke: No Drug Use: none Patient Lives Alone: No - Social Determinants of Health Will the patient participate in the screening: Yes Do you worry about a steady place to live?: No Do you have any problems with any of the following?: No known problems In the past 12 months,have you had to go without utilities?: No Transportation Issues: No Has anyone in your support network made you feel unsafe?: No Have you or anyone in your house had to go without enough: No - Nursing Vital Signs Nursing Vital Signs: Initial Vital Signs Temperature 98.1 F 10/31/24 18:20 Pulse Rate 89 10/31/24 18:20 Respiratory Rate 14 10/31/24 18:20 Blood Pressure 128/86 10/31/24 18:20 O2 Sat by Pulse Oximetry 98 10/31/24 18:20 Pain Scale Pain Intensity 3 - Physical Exam General Appearance: no apparent distress, alert Eye Exam: PERRL/EOMI, eyes nml inspection Ears, Nose, Throat Exam: normal ENT inspection, TMs normal, pharynx normal, dry mucous membranes Neck Exam: normal inspection, non-tender, supple, full range of motion Respiratory Exam: normal breath sounds, lungs clear, airway intact, No respiratory distress Cardiovascular Exam: regular rate/rhythm, normal heart sounds, normal peripheral pulses Gastrointestinal/Abdomen Exam: soft, normal bowel sounds, No tenderness, No mass Back Exam: normal inspection, normal range of motion, No CVA tenderness, No vertebral tenderness Extremity Exam: normal inspection, normal range of motion, pelvis stable Neurologic Exam: alert, oriented x 3, cooperative, normal mood/affect, sensation nml, No motor deficits Skin Exam: normal color, warm, dry, No rash Lymphatic Exam: No adenopathy SpO2 Interpretation: normal SpO2: 98 O2 Delivery: Room Air - Course Nursing assessment & vital signs reviewed: Yes Ordered Tests: Active Orders 24 hr Category Date Time Status Patent Legal Assistant STAT Care 10/31/24 19:03 Active IV Insertion STAT Care 10/31/24 19:02 Active Pulse Oximetry (ED) STAT Care 10/31/24 19:02 Active CBC W DIFF Stat Lab 10/31/24 20:15 Completed CMP Stat Lab 10/31/24 20:15 Completed CULTURE,URINE Stat Lab 10/31/24 20:55 Received HCG QUALITATIVE, URINE Stat Lab 10/31/24 20:55 Completed UA W/RFX UR CULTURE Stat Lab 10/31/24 20:55 Completed Medication Summary Discontinued Medications Generic Name Dose Route Start Last Admin Trade Name Roosevelt PRN Reason Stop Dose Admin Sodium Chloride 1,000 mls @ 999 mls/hr 10/31/24 19:02 10/31/24 20:17 Sodium Chloride 0.9% 1000 Ml IV 10/31/24 20:02 999 mls/hr .Q1H1M STA Administration Sodium Chloride Confirm 10/31/24 20:16 Sodium Chloride 0.9% 1000 Ml Administered 10/31/24 20:17 Dose 1,000 mls @ ud .ROUTE .STK-MED ONE Nitrofurantoin Macrocrystals 100 mg 10/31/24 22:45 Nitrofurantoin Macro 100 Mg Capsule PO 10/31/24 22:46 STAT ONE Potassium Chloride 40 meq 10/31/24 20:52 10/31/24 20:57 Potassium Chloride Tab 10 Meq Tab PO 10/31/24 20:53 40 meq STAT ONE Administration Potassium Chloride Confirm 10/31/24 20:56 Potassium Chloride Tab 10 Meq Tab Administered 10/31/24 20:57 Dose 40 meq .ROUTE .STK-MED ONE Lab/Rad Data: Laboratory Result Diagrams 10/31/24 20:15 10/31/24 20:15 Laboratory Results 10/31/24 10/31/24 10/31/24 Range/Units 20:55 20:55 20:25 WBC (3.98-10.04) x10^3/uL RBC (3.93-5.22) x10^6/uL Hgb (11.2-15.7) g/dL Hct (34.1-44.9) % MCV (79.4-94.8) fL MCH (25.6-32.2) pg MCHC (32.2-35.5) g/dL RDW (11.7-14.4) % Plt Count (182-369) x10^3/uL MPV (9.4-12.3) fL Gran % (34.0-71.1) % Immature Gran % (Auto) (0.001-0.429) % Nucleat RBC Rel Count (0.00-0.2) % Eos # (Auto) (0.04-0.36) x10^3/uL Immature Gran # (Auto) (0.001-0.031) x10^3u/L Absolute Lymphs (auto) (1.18-3.74) x10^3/uL Absolute Monos (auto) (0.24-0.86) x10^3/uL Absolute Nucleated RBC (0.00-0.012) x10^3u/L Lymphocytes % (19.3-51.7) % Monocytes % (4.7-12.5) % Eosinophils % (0.7-5.8) % Basophils % (0.1-1.2) % Absolute Granulocytes (1.56-6.13) x10^3/uL Basophils # (0.01-0.08) x10^3/uL Sodium (135-145) mmol/L Potassium (3.5-5.1) mmol/L Chloride (98-107) mmol/L Carbon Dioxide (22-30) mmol/L Anion Gap (5-15) MEQ/L BUN (7-17) mg/dL Creatinine (0.52-1.04) mg/dL Estimated GFR ML/MIN Glucose (74-106) mg/dL Calcium (8.4-10.2) mg/dL Total Bilirubin (0.2-1.3) mg/dL AST (14-36) U/L ALT (0-35) U/L Alkaline Phosphatase (38-126) U/L Serum Total Protein (6.3-8.2) g/dL Albumin (3.5-5.0) g/dL Urine Color Dark Yellow A (Yellow) Urine Appearance Cloudy A (Clear) Urine pH 6.0 (4.6-8.0) Ur Specific Maynard >=1.030 A (1.005-1.030) Urine Protein 30 (Negative) Urine Glucose (UA) Negative (Negative) mg/dL Urine Ketones 40 A (Negative) Urine Blood Large A (Negative) Urine Nitrite Negative (Negative) Urine Bilirubin Negative (Negative) Urine Urobilinogen 1.0 A (0.2) mg/dL Ur Leukocyte Esterase Trace A (Negative) U Hyaline Cast (Auto) NONE SEEN (0-2) /LPF Urine Microscopic RBC >100 A (0-5) /HPF Urine Microscopic WBC 6-10 A (0-5) /HPF Ur Epithelial Cells Rare (None Seen) /HPF Urine Bacteria None Seen (None Seen) /HPF Urine Culture Reflexed YES (NO) Urine HCG, Qual NEGATIVE (NEGATIVE) Influenza Type A Ag NEGATIVE (NEGATIVE) Influenza Type B Ag NEGATIVE (NEGATIVE) RSV (PCR) NEGATIVE (NEGATIVE) SARS-CoV-2 (PCR) NEGATIVE (NEGATIVE) 10/31/24 10/31/24 Range/Units 20:15 20:15 WBC 4.4 (3.98-10.04) x10^3/uL RBC 4.58 (3.93-5.22) x10^6/uL Hgb 10.8 L (11.2-15.7) g/dL Hct 34.1 (34.1-44.9) % MCV 74.5 L (79.4-94.8) fL MCH 23.6 L (25.6-32.2) pg MCHC 31.7 L (32.2-35.5) g/dL RDW 17.1 H (11.7-14.4) % Plt Count 313 (182-369) x10^3/uL MPV 10.9 (9.4-12.3) fL Gran % 64.8 (34.0-71.1) % Immature Gran % (Auto) 0.9 H (0.001-0.429) % Nucleat RBC Rel Count 0.0 (0.00-0.2) % Eos # (Auto) 0.06 (0.04-0.36) x10^3/uL Immature Gran # (Auto) 0.04 H (0.001-0.031) x10^3u/L Absolute Lymphs (auto) 0.98 L (1.18-3.74) x10^3/uL Absolute Monos (auto) 0.43 (0.24-0.86) x10^3/uL Absolute Nucleated RBC 0.00 (0.00-0.012) x10^3u/L Lymphocytes % 22.5 (19.3-51.7) % Monocytes % 9.9 (4.7-12.5) % Eosinophils % 1.4 (0.7-5.8) % Basophils % 0.5 (0.1-1.2) % Absolute Granulocytes 2.83 (1.56-6.13) x10^3/uL Basophils # 0.02 (0.01-0.08) x10^3/uL Sodium 135 (135-145) mmol/L Potassium 3.3 L (3.5-5.1) mmol/L Chloride 105 (98-107) mmol/L Carbon Dioxide 19 L (22-30) mmol/L Anion Gap 14.0 (5-15) MEQ/L BUN 20 H (7-17) mg/dL Creatinine 0.63 (0.52-1.04) mg/dL Estimated GFR 125.4 ML/MIN Glucose 98 (74-106) mg/dL Calcium 8.8 (8.4-10.2) mg/dL Total Bilirubin 0.80 (0.2-1.3) mg/dL AST 31 (14-36) U/L ALT 16 (0-35) U/L Alkaline Phosphatase 60 (38-126) U/L Serum Total Protein 7.2 (6.3-8.2) g/dL Albumin 4.4 (3.5-5.0) g/dL Urine Color (Yellow) Urine Appearance (Clear) Urine pH (4.6-8.0) Ur Specific Maynard (1.005-1.030) Urine Protein (Negative) Urine Glucose (UA) (Negative) mg/dL Urine Ketones (Negative) Urine Blood (Negative) Urine Nitrite (Negative) Urine Bilirubin (Negative) Urine Urobilinogen (0.2) mg/dL Ur Leukocyte Esterase (Negative) U Hyaline Cast (Auto) (0-2) /LPF Urine Microscopic RBC (0-5) /HPF Urine Microscopic WBC (0-5) /HPF Ur Epithelial Cells (None Seen) /HPF Urine Bacteria (None Seen) /HPF Urine Culture Reflexed (NO) Urine HCG, Qual (NEGATIVE) Influenza Type A Ag (NEGATIVE) Influenza Type B Ag (NEGATIVE) RSV (PCR) (NEGATIVE) SARS-CoV-2 (PCR) (NEGATIVE) - Progress Progress: improved Progress Note: 24-year-old female presents to emergency department for evaluation of nausea vomiting diarrhea body aches. Physical exam reveals dry oral mucous membranes. Patient appears dehydrated. Laboratory workup reveals hypokalemia at 3.3. Oral potassium replaced. Workup reveals a urinary tract infection and dehydration. Patient received a dose of Macrobid in our ED. A prescription for the same forwarded to patient's pharmacy. IV fluids infused. RSV flu COVID-negative. Patient reassessed she feels well. No indication for further workup. Patient states she is ready for discharge. She voices no other complaints or concerns at this time. Portions of this note were created with voice recognition technology. There may be grammatical, spelling, punctuation or sound alike errors Complexity of problem addressed is moderate acute complicated no critical care time. Complexity of data reviewed analyzes moderate. Test ordered chest reviewed results analyzed and correlated clinically with history and physical exam. Risk of complication and or risk of morbidity/mortality of patient management is low. Vital stable. Time spent to discharge patient is madan roximately 10 minutes. Plan of care established for shared decision making. No social determinants of health present to impede follow-up. Portions of this note were created with voice recognition technology. There may be grammatical, spelling, punctuation or sound alike errors 10/31/24 22:51 Counseled pt/family regarding: lab results, diagnosis, need for follow-up - Departure Departure Disposition: Home Clinical Impression: Dehydration, Hypokalemia, UTI (urinary tract infection), Nausea vomiting and diarrhea Condition: Stable Critical Care Time: No Referrals: ARLINE PRESSLEY MD [Primary Care Provider] - Follow up/PCP as directed Additional Instructions: Discharge/Care Plan CONSTANTIN MIRELES was seen on 10/31/24 in the Emergency Room. The patient was counseled regarding Diagnosis,Lab results, Imaging studies, need for follow up and when to return to the Emergency Room. Prescriptions given: Discharge Note I have spoken with the patient and/or caregivers. I have explained the patient's condition, diagnosis and treatment plan based on the information available to me at this time. I have answered the patient's and/or caregiver's questions and addressed any concerns. The patient and/or caregivers have as good understanding of the patient's diagnosis, condition and treatment plan as can be expected at this point. The vital signs have been stable. The patient's condition is stable and appropriate for discharge from the emergency department. The patient will pursue further outpatient evaluation with the primary care physician or other designated or consulting physician as outlined in the discharge instructions. The patient and/or caregivers are agreeable to this plan of care and follow-up instructions have been explained in detail. The patient and/or caregivers have received these instruction. The patient/and or caregivers are aware that any significant change in condition or worsening of symptoms should prompt an immediate return to this or the closest emergency department or call 911. Prescriptions: Nitrofurantoin Macro 100 mg [Macrobid 100MG Capsule] 100 mg PO BID 7 Days #14 cap
[2024-10-31] MEDS ORDERED: Sodium Chloride 0.9% 1000 ML 1,000 ML ONE (20:16)
[2024-10-31] MEDS: Sodium Chloride 0.9% 1000 ML 1,000 ML IV STA (20:17)
[2024-10-31 20:29] LABS: Absolute Neutrophil Ct (ANC) 2.83 x10^3/uL (1.56-6.13); BASOPHIL % 0.5 % (0.1-1.2); Basophil (Absolute #) 0.02 x10^3/uL (0.01-0.08); Eosinophil % 1.4 % (0.7-5.8); Eosinophil (Absolute #) 0.06 x10^3/uL (0.04-0.36); Hematocrit 34.1 % (34.1-44.9); Hemoglobin 10.8 g/dL (11.2-15.7); IMMATURE GRAN # 0.04 x10^3u/L (0.001-0.031); IMMATURE GRAN % 0.9 % (0.001-0.429); Lymphocyte (Absolute #) 0.98 x10^3/uL (1.18-3.74); Lymphocytes % 22.5 % (19.3-51.7); Mean Cell Volume 74.5 fL (79.4-94.8); Mean Corpuscular Hemoglobin 23.6 pg (25.6-32.2); Mean Corpuscular Hgb Concent. 31.7 g/dL (32.2-35.5); Mean Platelet Volume 10.9 fL (9.4-12.3); Monocyte (Absolute #) 0.43 x10^3/uL (0.24-0.86); Monocytes % 9.9 % (4.7-12.5); Neutrophil % 64.8 % (34.0-71.1); Platelet Count 313 x10^3/uL (182-369); Red Blood Count 4.58 x10^6/uL (3.93-5.22); Red Cell Distribution Width 17.1 % (11.7-14.4); White Blood Count 4.4 x10^3/uL (3.98-10.04)
[2024-10-31 20:43] LABS: ALBUMIN 4.4 g/dL (3.5-5.0); BILIRUBIN,TOTAL 0.8 mg/dL (0.2-1.3); Calcium 8.8 mg/dL (8.4-10.2); Creatinine 1 0.63 mg/dL (0.52-1.04); EST GLOMERULAR FILTRATION RATE 125.4 ML/MIN; Potassium 3.3 mmol/L (3.5-5.1); Total Protein 7.2 g/dL (6.3-8.2)
[2024-10-31] MEDS ORDERED: Klor Con ONE (20:56)
[2024-10-31] MEDS: Klor Con PO ONE (20:57)
[2024-10-31 22:02] LABS: INFLUENZA A NEGATIVE (NEGATIVE); INFLUENZA B NEGATIVE (NEGATIVE); RESPIRATORY SYNCTIAL VIRUS NEGATIVE (NEGATIVE); SARS-CoV-2 Xpert Express NEGATIVE (NEGATIVE)
[2024-10-31 22:05] LABS: HCG URINE TEST NEGATIVE (NEGATIVE)
[2024-10-31 22:10] LABS: Appearance Cloudy (Clear); Bacteria None Seen /HPF (None Seen); Bilirubin Negative (Negative); Blood Large (Negative); Epithelial Cells Rare /HPF (None Seen); Glucose, Urine Negative (Negative); Hyaline Casts NONE SEEN /LPF (0-2); Ketones 40 (Negative); Leukocyte Esterase Trace (Negative); Nitrite Negative (Negative); Protein,Urine Dip 30 (Negative); RBC >100 /HPF (0-5); Specific Gravity >=1.030 (1.005-1.030)
[2024-10-31 22:50] VITALS: O2SAT 98
[2024-10-31] MEDS: Macrobid 100MG Capsule PO ONE (22:52)
[2024-10-31] MEDS ORDERED: Macrobid 100MG Capsule ONE (22:52)
[2024-10-31 23:08] VITALS: BP 125/76; PULSE 69; RESP 19
== END 2024-10-31 23:23 | disposition home or self-care (01) ==
LOC: ED 17:31
DX: E86.0 Dehydration (principal); E87.6 Hypokalemia; N39.0 Urinary tract infection, site not specified; R11.2 Nausea with vomiting, unspecified; R19.7 Diarrhea, unspecified
CPT/HCPCS: 0241U; 36415; 80053; 81001; 81025; 85025; 87086; 93041; 94760; 99284; A9270-GY